=== PATIENT | female | born 2000 | race Caucasian/White ===

== ENCOUNTER → 2020-12-23 09:24 | Outpatient (CLI) | payer OTHER, SELFPAY ==
[2020-12-23 11:03] LABS: T3 Total - Triiodothyronine 1.11 ng/mL (0.6-1.81)
[2020-12-23 11:10] LABS: Thyroid Stim Hormone (TSH) 2.14 uIU/mL (0.358-3.74)
[2020-12-25 12:47] LABS: Thyroid Peroxidase AB 235 IU/mL (0-34)
== END ==
PROVIDERS: Referring Provider Physician Assistant; Visit Provider Physician Assistant
DX: L70.0 Acne vulgaris (principal); E03.9 Hypothyroidism, unspecified
CPT/HCPCS: 36415; 84439; 84443; 84480; 86376